=== PATIENT | female | born 1985 | race American Indian/Alaskan Native ===

== ENCOUNTER 2016-05-23 11:12 | Emergency (ER) | payer SELFPAY ==
[2016-05-23 12:39] VITALS: BP 123/78
[2016-05-23] MEDS ORDERED: Ketorolac INJ* 60 MG/2 ML VIAL IM ONE (13:17)
--- NOTE | 2016-05-23 13:29 | UC ---
Ear Complaint HPI - HPI Summary HPI Summary: THREE WEEKS OF LEFT EAR PAIN , SINUS PRESSURE COUGHING GREEN MUCUS, HAS BEEN/ BROKEN TEETH, HAS HAD PAIN IN TEETH. NO FEVER. - History of Current Complaint Chief Complaint: UCEar Stated Complaint: EAR COMPLAINT Time Seen by Provider: 05/23/16 12:43 Hx Obtained From: Patient Hx Last Menstrual Period: depot shot yesterday Onset/Duration: Gradual Onset, Lasting Weeks, Still Present Severity Initially: Mild Severity Currently: Moderate Associated Signs/Symptoms: Positive: URI Symptoms. Negative: Hearing Loss, Foreign Body Sensation, Trauma to Ear, Swelling @ - Allergies/Home Medications Allergies/Adverse Reactions: Allergies Allergy/AdvReac Type Severity Reaction Status Date / Time No Known Allergies Allergy Verified 06/09/13 10:57 PMH/Surg Hx/FS Hx/Imm Hx Previously Healthy: Yes Endocrine History Of: Denies: Diabetes, Thyroid Disease Cardiovascular History Of: Denies: Cardiac Disorders, Hypertension Respiratory History Of: Reports: Asthma Denies: COPD GI/ History Of: Denies: Ulcer, Renal Disease Psychological History Of: Reports: Anxiety, Depression - Surgical History Surgical History: Yes Surgery Procedure, Year, and Place: RIGHT SHOULDER JOINT DEBREIDMENT 03/2013. 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, alcohol since 2.5 years Smoking Status (MU): Heavy Every Day Tobacco Smoker Type: Cigarettes Amount Used/How Often: 1/2 PPD Length of Time of Smoking/Using Tobacco: 12 YEARS Have You Smoked in the Last Year: Yes Household Exposure Type: Cigarettes Cessation Counseling: Patient Advised to Stop - Immunization History Most Recent Influenza Vaccination: UNSURE Most Recent Tetanus Shot: UNSURE Most Recent Pneumonia Vaccination: NEVER Review of Systems Constitutional: Negative Skin: Negative Eyes: Negative ENT: Dental Pain, Sore Throat, Ear Ache Respiratory: Cough Cardiovascular: Negative Gastrointestinal: Negative Genitourinary: Negative Motor: Negative Neurovascular: Negative Musculoskeletal: Negative Neurological: Negative Psychological: Negative All Other Systems Reviewed And Are Negative: Yes Physical Exam Triage Information Reviewed: Yes Appearance: Well-Appearing, No Pain Distress, Well-Nourished Vital Signs: Initial Vital Signs Temp 97.7 F 05/23/16 12:31 Pulse 93 01/27/17 12:31 Resp 18 05/23/16 12:31 BP 123/78 05/23/16 12:31 Pulse Ox 100 05/23/16 12:31 Vital Signs Reviewed: Yes Eye Exam: Normal Eyes: Positive: Conjunctiva Clear ENT: Positive: Pharynx normal, TM bulging, TM dull, TM red, Other: - LEFT EDEMA EAC Dental: Positive: Gross Decay/Caries @ Neck: Positive: Supple, Nontender, Enlarged Nodes @ - BILAT ANTERIOR CERVICAL LN. Negative: Nuchal Rigidity Respiratory Exam: Normal Respiratory: Positive: Chest non-tender, Lungs clear, Normal breath sounds, No respiratory distress, No accessory muscle use Cardiovascular Exam: Normal Cardiovascular: Positive: RRR, No Murmur, Pulses Normal, Brisk Capillary Refill Abdominal Exam: Normal Abdomen Description: Positive: Nontender, No Organomegaly Musculoskeletal Exam: Normal Musculoskeletal: Positive: Strength Intact Neurological Exam: Normal Psychological Exam: Normal Skin Exam: Normal Ear Complaint Course/Dx - Differential Dx/Diagnosis Differential Diagnosis/HQI/PQRI: Cellulitis, Otitis Externa, Otitis Media, URI Provider Diagnoses: OTITIS MEDIA BILAT. OTITIS EXTERNA LEFT. SINUSITIS Discharge - Discharge Plan Condition: Stable Disposition: HOME Prescriptions: Amoxicillin/Clavulanate TAB* [Augmentin TAB 875*] 875 mg PO BID #20 tab Benzonatate CAP* [Tessalon CAP*] 100 mg PO TID PRN #15 cap PRN Reason: Cough Naproxen [Naproxen 500 MG TABS] 500 mg PO BID #10 tab Neomyc/Polym/HC 1% OTIC SUSP* [Cortisporin Otic Susp 1%*] 4 drop LEFT EAR TID # 1 btl Patient Education Materials: Sinusitis (ED), Otitis Externa (ED), Otitis Media (ED) Referrals: Judson Torres MD [Primary Care Provider] -
== END 2016-05-23 13:57 | disposition home or self-care (01) ==
LOC: UCEAST 11:12
DX: H66.93 Otitis media, unspecified, bilateral (principal); H60.92 Unspecified otitis externa, left ear; J32.9 Chronic sinusitis, unspecified; K03.81 Cracked tooth; F17.210 Nicotine dependence, cigarettes, uncomplicated
CPT/HCPCS: 96372; 99212; G0463; J1885

== ENCOUNTER 2018-05-02 13:38 | Emergency (ER) | payer MEDICAID, OTHER ==
[2018-05-02 14:20] VITALS: BP 125/83
--- NOTE | 2018-05-02 16:09 | UC ---
Dental HPI - HPI Summary HPI Summary: PATIENT HAS HAD A CRACKED LEFT LOWER TOOTH FOR OVER A YEAR. FOR THE PAST ONE MONTH SHE HAS DEVELOPED INCREASING PAIN AND INTERMITTENT SWELLING AROUND THE TOOTH. NO FEVER OR NAUSEA. HAS NOT SEEN A DENTIST SHE DOES NOT HAVE INSURANCE. FOR THE PAST FEW WEEKS SHE HAS ALSO HAD A PRODUCTIVE COUGH, SORE THROAT AND EAR PAIN. FEELS FATIGUED. IS A SMOKER. - History of Current Complaint Chief Complaint: UCDentalProblem Stated Complaint: COUGH,BACK PAIN,TOOTHACHE Time Seen by Provider: 05/02/18 15:19 Hx Obtained From: Patient Hx Last Menstrual Period: unknown Onset/Duration: Gradual Onset, Lasting Weeks, Resolved Pain Intensity: 3 Pain Scale Used: 0-10 Numeric Aggravating Factor(s): Heat, Cold, Chewing Alleviating Factor(s): Nothing - Allergies/Home Medications Allergies/Adverse Reactions: Allergies Allergy/AdvReac Type Severity Reaction Status Date / Time No Known Allergies Allergy Verified 05/02/18 14:21 Home Medications: Home Medications Prazosin CAP* [Minipress CAP*] 5 mg PO DAILY 05/02/18 [History Confirmed ] PMH/Surg Hx/FS Hx/Imm Hx Respiratory History: Asthma - Surgical History Surgical History: Yes Surgery Procedure, Year, and Place: RIGHT SHOULDER JOINT DEBREIDMENT 03/2013. 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, alcohol since 2.5 years Smoking Status (MU): Heavy Every Day Tobacco Smoker Type: Cigarettes Amount Used/How Often: 1/2 PPD Length of Time of Smoking/Using Tobacco: 12 YEARS Have You Smoked in the Last Year: Yes Household Exposure Type: Cigarettes - Immunization History Most Recent Influenza Vaccination: UNSURE Most Recent Tetanus Shot: UNSURE Most Recent Pneumonia Vaccination: NEVER Review of Systems All Other Systems Reviewed And Are Negative: Yes Constitutional: Positive: Fatigue ENT: Positive: Dental Pain, Sore Throat, Ear Ache, Nasal Discharge Respiratory: Positive: Other Cardiovascular: Positive: Negative Gastrointestinal: Positive: Negative Physical Exam Triage Information Reviewed: Yes Appearance: Well-Appearing, No Pain Distress, Well-Nourished Vital Signs: Initial Vital Signs Temp 98.7 F 05/02/18 14:16 Pulse 80 05/02/18 14:16 Resp 18 05/02/18 14:16 BP 125/83 05/02/18 14:16 Pulse Ox 100 05/02/18 14:16 Vital Signs Reviewed: Yes Eyes: Positive: Conjunctiva Clear ENT: Positive: Hearing grossly normal, Pharynx normal, TMs normal Dental: Positive: Gross Decay/Caries @, Dental Fracture @ - #17 - FRACTURED, DECAY WITH PLAQUE Neck: Positive: Supple, Nontender, No Lymphadenopathy Respiratory: Positive: No respiratory distress, No accessory muscle use, Decreased breath sounds, Wheezing - DIFFUSELY Cardiovascular Exam: Normal Abdomen Description: Positive: Soft Musculoskeletal: Positive: No Edema Neurological: Positive: Alert Psychological: Positive: Age Appropriate Behavior Skin: Negative: Rashes Dental Complaint Course/Dx - Course Course Of Treatment: PT DECLINES CXR TODAY. WILL COVER FOR DENTAL INFECTION WITH AUGMENTIN WHICH SHOULD COVER FOR ANY BACTERIAL COMPONENT OF HER RESPIRATORY INFECTION. WILL ALSO GIVE INHALER, PREDNISONE AND COUGH MEDS. ENCOURAGED PT TO QUIT SMOKING. - Differential Dx/Diagnosis Provider Diagnosis: Toothache, Acute bronchitis Discharge - Sign-Out/Discharge Documenting (check all that apply): Patient Departure All imaging exams completed and their final reports reviewed: No Studies - Discharge Plan Condition: Stable Disposition: HOME Prescriptions: Albuterol HFA INHALER* [Ventolin HFA Inhaler*] 2 puff INH Q4H PRN #1 mdi PRN Reason: Shortness Of Breath Amoxicillin/Clavulanate TAB* [Augmentin TAB 875*] 875 mg PO BID #20 tab Benzonatate CAP* [Tessalon CAP*] 1 - 2 cap PO TID PRN #30 cap PRN Reason: Cough Chlorhexidine MW 0.12% 473ML* [Peridex Mouth Wash 0.12%*] 15 ml SWISH SPIT BID # 1 bottle predniSONE TAB* [Deltasone 20 MG TAB*] 40 mg PO DAILY #10 tab Patient Education Materials: Acute Bronchitis (ED), Toothache (ED) Referrals: Judson Torres MD [Primary Care Provider] - If Needed Additional Instructions: TAKE THE ANTIBIOTICS FOR THE FULL COURSE. RINSE YOUR MOUTH WITH WATER AFTER EATING OR DRINKING ANYTHING. ANTISEPTIC MOUTH RINSE TWICE DAILY. naproxen NEEDED FOR DISCOMFORT. FOLLOW-UP WITH A DENTIST YOLA. IBUPROFEN MAX DOSE: 600MG (3 TABS) EVERY 6 HRS OR 800MG (4 TABS) EVERY 8 HRS OR NAPROXEN MAX DOSE: 440MG (2 TABS) EVERY 12 HRS TYLENOL MAX DOSE: 1000MG (2 EXTRA STRENGTH TABS) EVERY 8 HRS OR 650MG (2 REGULAR TABS) EVERY 6 HRS DENTISTS IN [place]. LIST OF L[facility]ST DENTISTS ALSO PROVIDED Prateek Mejía Livermore & Juan. DDS Dentist Office [address], [place] [address] Gabriel Blas, DDS [address], [place] [address] Garry Dickey D.D.S. [address], [place] [phone] Opens at 8am YOUR RESPIRATORY SYMPTOMS MAY BE VIRALLY MEDIATED BUT GIVEN THE LENGTH OF TIME YOU HAVE BEEN ILL WE WILL COVER YOU WITH ANTIBIOTICS. IF YOU START THE MEDICINE BE SURE TO TAKE IT FOR THE FULL COURSE. REST, HYDRATE, OTC MEDS NEEDED. WILL ALSO TREAT WITH PREDNISONE ANDD ALBUTEROL TO HELP WITH AIRWAY INFLAMMATION AND COUGH MEDICINE. SEEK FOLLOW-UP WITH YOUR PCP IF YOU ARE NOT IMPROVING OVER THE NEXT 1-2 WEEKS. - Billing Disposition and Condition Condition: STABLE Disposition: Home
== END 2018-05-02 15:40 | disposition home or self-care (01) ==
LOC: UCEAST 13:38
DX: J20.9 Acute bronchitis, unspecified (principal); K08.89 Other specified disorders of teeth and supporting structures; J45.909 Unspecified asthma, uncomplicated; F17.210 Nicotine dependence, cigarettes, uncomplicated
CPT/HCPCS: 99212; G0463

== ENCOUNTER 2018-08-16 19:44 | Emergency (ER) | payer SELFPAY ==
--- NOTE | 2018-08-16 19:53 | UC ---
Abdominal Pain Female HPI - HPI Summary HPI Summary: 32 yo female presents with epigastric pain. She describes the pain as a burning that is worse with lying down. She has vomited once due to this pain. No change with meals. She mentions that about a week ago she had IV conscious sedation for some oral surgery and ever since that time she has had this stomach discomfort. She is eating and drinking well, but does endorse some nausea. She denies fever, chills, SOB, chest pain, diarrhea, or dysuria. - History of Current Complaint Stated Complaint: ABDOMINAL PAIN, AND BACK PAIN Time Seen by Provider: 08/16/18 19:53 Hx Obtained From: Patient Hx Last Menstrual Period: unknown Onset/Duration: Sudden Onset Severity Initially: Moderate Severity Currently: Moderate Pain Intensity: 8 Pain Scale Used: 0-10 Numeric Allergies/Adverse Reactions: Allergies Allergy/AdvReac Type Severity Reaction Status Date / Time No Known Allergies Allergy Verified 08/16/18 20:00 Home Medications: Home Medications Acetaminophen TAB* [Tylenol TAB*] 975 mg PO Q4H PRN 08/16/18 [History Confirmed 08/16/18] Ibuprofen TAB* [Motrin TAB* 800 MG] 800 mg PO Q6H 08/16/18 [History Confirmed ] PMH/Surg Hx/FS Hx/Imm Hx - Additional Past Medical History Additional PMH: None - Surgical History Surgical History: Yes Surgery Procedure, Year, and Place: RIGHT SHOULDER JOINT DEBREIDMENT 03/2013. 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, alcohol since 2.5 years Smoking Status (MU): Heavy Every Day Tobacco Smoker Type: Cigarettes Amount Used/How Often: 1/2 PPD Length of Time of Smoking/Using Tobacco: 12 YEARS Have You Smoked in the Last Year: Yes Household Exposure Type: Cigarettes - Immunization History Most Recent Influenza Vaccination: UNSURE Most Recent Tetanus Shot: UNSURE Most Recent Pneumonia Vaccination: NEVER Review of Systems All Other Systems Reviewed And Are Negative: Yes Constitutional: Positive: Negative Skin: Positive: Negative Respiratory: Positive: Negative Cardiovascular: Positive: Negative Gastrointestinal: Positive: Abdominal Pain, Vomiting, Nausea Genitourinary: Positive: Negative Neurovascular: Positive: Negative Neurological: Positive: Negative Psychological: Positive: Negative Physical Exam - Summary Physical Exam Summary: GENERAL: NAD. WDWN. No pain distress. SKIN: No rashes, sores, lesions, or open wounds. NECK: Supple. Nontender. No lymphadenopathy. CHEST: CTAB. No r/r/w. No accessory muscle use. Breathing comfortably and in no distress. CV: RRR. Without m/r/g. Pulses intact. Cap refill <2seconds ABDOMEN: Mild TTP at epigastrum. Soft. No distention or guarding. No organomegaly. No CVA tenderness. Bowel sounds present NEURO: Alert. PSYCH: Age appropriate behavior. Triage Information Reviewed: Yes Vital Signs: Vital Signs: Temp Pulse Resp BP Pulse Ox 99.1 F 84 16 121/71 97 08/16/18 19:52 08/16/18 19:52 08/16/18 19:52 08/16/18 19:52 08/16/18 19:52 Vital Signs Reviewed: Yes Abd Pain Female Course/Dx - Course Course Of Treatment: Suspect GERD vs gastroparesis given her recent IV sedation and symptoms beginning right after this. In the clinic she was given zofran, maalox, pepcid, and lidocaine viscous. She report significant improvement of her symptoms and felt much better. Will dc her with an rx for omeprazole and zofran. Advised to f /u if her symptoms worsen or do not improve with these medications. - Differential Dx/Diagnosis Provider Diagnosis: GERD (gastroesophageal reflux disease) Discharge - Sign-Out/Discharge Documenting (check all that apply): Patient Departure All imaging exams completed and their final reports reviewed: No Studies - Discharge Plan Condition: Stable Disposition: HOME Prescriptions: Omeprazole 40 mg PO DAILY #30 cap Ondansetron ODT TAB* [Zofran 4 MG Odt TAB*] 4 mg PO Q8H PRN #12 tab.odt PRN Reason: Nausea Patient Education Materials: Gastritis (DC), Gastroesophageal Reflux Disease ( DC) Referrals: Judson Torres MD [Primary Care Provider] - Additional Instructions: If you develop a fever, shortness of breath, chest pain, new or worsening symptoms - please call your PCP or go to the ED. - Billing Disposition and Condition Condition: STABLE Disposition: Home
[2018-08-16 20:00] VITALS: BP 121/71
[2018-08-16] MEDS ORDERED: Ondansetron ODT TAB* 4 MG SL ONE (20:13)
[2018-08-16] MEDS ORDERED: Al Hydrox/Mg Hydrox/Simet LIQ* 30 ML UDC PO ONE (20:13)
[2018-08-16] MEDS ORDERED: Famotidine TAB* 20 MG PO ONE (20:13)
[2018-08-16] MEDS ORDERED: Lidocaine 2% VISCOUS* 15 ML UDC PO ONE (20:13)
== END 2018-08-16 20:50 | disposition home or self-care (01) ==
LOC: UCEAST 19:44
DX: K21.9 Gastro-esophageal reflux disease without esophagitis (principal); F17.210 Nicotine dependence, cigarettes, uncomplicated
CPT/HCPCS: 99213; A9270-GY; G0463

== ENCOUNTER 2021-07-01 08:35 | Inpatient (IN) ==
[2021-07-01] MEDS ORDERED: Haloperidol 5 mg/ml SDV IV/IM 5 MG/ML AMP IM ONE ×2 (10:18→10:21)
[2021-07-01] MEDS ORDERED: Diazepam INJ CARPUJECT 5 MG/ML IM ONE ×2 (10:19→10:21)
[2021-07-01 14:44] LABS: ABS Basophils 0.1 10^3/ul (0-0.2); ABS Eosinophils 0.1 10^3/ul (0-0.6); ABS Lymphocytes 1.9 10^3/ul (1.0-4.8); ABS Monocytes 0.5 10^3/ul (0-0.8); ABS Neutrophils 6.4 10^3/ul (1.5-7.7); Hematocrit 43 % (35-47); Hemoglobin 15.1 g/dL (12.0-16.0); Lymphocyte % 21.5 %; Mean Corpuscular HGB Conc 35 g/dL (31-36); Mean Corpuscular Hemoglobin 33 pg (27-31); Mean Corpuscular Volume 95 fL (80-97); Mean Platelet Volume 7.3 fL (7.4-10.4); Platelet Count 271 10^3/uL (150-450); Red Blood Count 4.57 10^6 /uL (3.70-4.87); Red Cell Distribution Width 13 % (10-15)
[2021-07-01 15:19] LABS: TSH Ultra Thyroid Stim Horm 2.59 mcIU/mL (0.34-5.60)
[2021-07-01 15:30] LABS: ALT 25 U/L (7-52); AST 27 U/L (13-39); Acetaminophen < 15 mcg/mL; Albumin 4.6 g/dL (3.2-5.2); Albumin/Globulin Ratio 1.9 (1-3); Alcohol, S < 13 mg/dL (<13); Alkaline Phosphatase 55 U/L (35-149); Anion Gap 8 mmol/L (2-11); Blood Urea Nitrogen 16 mg/dL (6-24); CO2 Carbon Dioxide 23 mmol/L (22-32); Calcium 9.1 mg/dL (8.6-10.3); Chloride 107 mmol/L (101-111); Globulin 2.4 g/dL (2-4); Glucose 81 mg/dL (70-100); Potassium 4.1 mmol/L (3.5-5.0); Salicylate < 2.50 mg/dL (<30); Sodium 138 mmol/L (135-145)
[2021-07-02] MEDS ORDERED: Al Hydrox/Mg Hydrox/Simet LIQ 30 ML UDC PO PRN (00:45)
[2021-07-02 02:55] LABS: Urine Appearance Turbid; Urine Bilirubin Negative (Negative); Urine Blood 2+ (Negative); Urine Color Amber; Urine Glucose Negative (Negative); Urine Ketones 1+ (Negative); Urine Nitrite Negative (Negative); Urine Protein Negative (Negative); Urine Specific Gravity 1.024 (1.002-1.030); Urine Urobilinogen Negative (Negative)
[2021-07-02 03:02] LABS: Urine Bacteria 1+ (Absent); Urine Red Blood Cell 3+(>10/hpf) (Absent); Urine Squamous Epithelial Cell Present (Absent); Urine White Blood Cell 3+(>20/hpf) (Absent)
[2021-07-02 03:05] LABS: Urine Benzodiazepine Screen Presumptive Positive (None Detect); Urine Cannabinoids Screen Presumptive Positive (None Detect); Urine Opiates Screen None Detected (None Detect)
[2021-07-02] MEDS: Nicotine PATCH 21 MG/24 HR PATCH TRANSDERM SCH (13:06)
[2021-07-02] MEDS: Buprenorp/Nalox 4-1 MG FILM SL FILM SCH ×2 (13:06→22:09)
[2021-07-02] MEDS: Vitamin THERAPEUTIC TAB PO SCH (13:07)
[2021-07-03] MEDS: Nicotine PATCH 21 MG/24 HR PATCH TRANSDERM SCH (07:44)
[2021-07-03] MEDS: Vitamin THERAPEUTIC TAB PO SCH (09:46)
[2021-07-03] MEDS: Buprenorp/Nalox 4-1 MG FILM SL FILM SCH ×2 (09:47→23:44)
[2021-07-04] MEDS: Nicotine PATCH 21 MG/24 HR PATCH TRANSDERM SCH (07:35)
[2021-07-04] MEDS: Vitamin THERAPEUTIC TAB PO SCH (07:36)
[2021-07-04] MEDS: Buprenorp/Nalox 4-1 MG FILM SL FILM SCH ×2 (10:35→19:51)
[2021-07-05] MEDS: Buprenorp/Nalox 4-1 MG FILM SL FILM SCH ×2 (10:23→20:00)
[2021-07-05] MEDS: Vitamin THERAPEUTIC TAB PO SCH (10:23)
[2021-07-05] MEDS: Nicotine PATCH 21 MG/24 HR PATCH TRANSDERM SCH (10:24)
[2021-07-05] MEDS: Nicotine GUM 2MG FRUIT FLAVOR PO PRN (14:03)
[2021-07-06] MEDS: Nicotine PATCH 21 MG/24 HR PATCH TRANSDERM SCH (08:59)
[2021-07-06] MEDS: Buprenorp/Nalox 4-1 MG FILM SL FILM SCH ×2 (08:59→20:31)
[2021-07-06] MEDS: Vitamin THERAPEUTIC TAB PO SCH (08:59)
[2021-07-06 10:36] LABS: HIV 4th Generation Nonreactive (Nonreactive)
[2021-07-06 10:54] LABS: Hepatitis C Antibody Reactive (Negative)
[2021-07-06] MEDS: Nicotine GUM 2MG FRUIT FLAVOR PO PRN (15:47)
[2021-07-07] MEDS: Vitamin THERAPEUTIC TAB PO SCH (08:05)
[2021-07-07] MEDS: Buprenorp/Nalox 4-1 MG FILM SL FILM SCH ×2 (09:22→21:20)
[2021-07-07] MEDS: Nicotine PATCH 21 MG/24 HR PATCH TRANSDERM SCH (10:45)
[2021-07-08] MEDS: Buprenorp/Nalox 4-1 MG FILM SL FILM SCH (10:12)
[2021-07-08] MEDS: Nicotine PATCH 21 MG/24 HR PATCH TRANSDERM SCH (10:12)
[2021-07-08] MEDS: Vitamin THERAPEUTIC TAB PO SCH (12:06)
[2021-07-08] MEDS: Nicotine GUM 2MG FRUIT FLAVOR PO PRN (15:15)
[2021-07-09 08:18] LABS: HDL Cholesterol 51.2 mg/dL
[2021-07-09] MEDS: Vitamin THERAPEUTIC TAB PO SCH (08:40)
[2021-07-09] MEDS: Nicotine PATCH 21 MG/24 HR PATCH TRANSDERM SCH (08:40)
[2021-07-09] MEDS: Nicotine GUM 2MG FRUIT FLAVOR PO PRN ×2 (11:22→14:36)
[2021-07-10] MEDS: Vitamin THERAPEUTIC TAB PO SCH (09:20)
[2021-07-10] MEDS: Nicotine GUM 2MG FRUIT FLAVOR PO PRN ×3 (09:20→14:52)
[2021-07-10] MEDS: Buprenorp/Nalox 4-1 MG FILM SL FILM SCH ×3 (09:21→20:45)
[2021-07-10] MEDS: Nicotine PATCH 21 MG/24 HR PATCH TRANSDERM SCH (09:21)
[2021-07-11 08:28] VITALS: BP 118/70
[2021-07-11] MEDS: Nicotine GUM 2MG FRUIT FLAVOR PO PRN (08:53)
[2021-07-11] MEDS: Vitamin THERAPEUTIC TAB PO SCH (08:53)
[2021-07-11] MEDS: Buprenorp/Nalox 4-1 MG FILM SL FILM SCH (08:53)
[2021-07-11] MEDS: Nicotine PATCH 21 MG/24 HR PATCH TRANSDERM SCH (11:21)
== END 2021-07-11 13:45 | disposition home or self-care (01) | DRG 753 ==
LOC: ED 08:35 → BSU 22:57
PROVIDERS: ADMIT Psychiatry & Neurology Psychiatry; ATTEND Psychiatry & Neurology Psychiatry

== ENCOUNTER 2022-04-08 22:19 | Inpatient (IN) ==
[2022-04-08 23:22] LABS: Urine Benzodiazepine Screen None Detected (None Detect); Urine Cannabinoids Screen Presumptive Positive (None Detect); Urine Opiates Screen None Detected (None Detect)
[2022-04-09 01:06] LABS: ABS Basophils 0.1 10^3/ul (0-0.2); ABS Eosinophils 0.2 10^3/ul (0-0.6); ABS Lymphocytes 2.3 10^3/ul (1.0-4.8); ABS Monocytes 0.4 10^3/ul (0-0.8); ABS Neutrophils 4.2 10^3/ul (1.5-7.7); Eosinophil % 2.1 %; Hematocrit 45 % (35-47); Hemoglobin 15.1 g/dL (12.0-16.0); Lymphocyte % 32.9 %; Mean Corpuscular HGB Conc 34 g/dL (31-36); Mean Corpuscular Hemoglobin 33 pg (27-31); Mean Corpuscular Volume 96 fL (80-97); Mean Platelet Volume 7.2 fL (7.4-10.4); Nucleated Red Blood Cells % 0.2; Platelet Count 240 10^3/uL (150-450); Red Blood Count 4.63 10^6 /uL (3.70-4.87); Red Cell Distribution Width 13 % (10-15); White Blood Count 7.1 10^3/uL (3.5-10.8)
[2022-04-09 01:42] LABS: ALT 15 U/L (7-52); AST 16 U/L (13-39); Acetaminophen < 15 mcg/mL; Albumin 4.5 g/dL (3.2-5.2); Albumin/Globulin Ratio 1.8 (1-3); Alcohol, S < 13 mg/dL (<13); Alkaline Phosphatase 44 U/L (35-149); Anion Gap 4 mmol/L (2-11); Blood Urea Nitrogen 13 mg/dL (6-24); CO2 Carbon Dioxide 28 mmol/L (22-32); Calcium 9.4 mg/dL (8.6-10.3); Chloride 103 mmol/L (101-111); Globulin 2.5 g/dL (2-4); Glucose 81 mg/dL (70-100); Potassium 4.1 mmol/L (3.5-5.0); Salicylate < 2.50 mg/dL (<30); Sodium 135 mmol/L (135-145); eGFR CKD-EPI 94.4 (>60)
[2022-04-09 01:48] LABS: HCG Pregnancy < 0.60 mIU/mL
[2022-04-09 01:57] LABS: TSH Ultra Thyroid Stim Horm 2.35 mcIU/mL (0.34-5.60)
[2022-04-09] MEDS ORDERED: Al Hydrox/Mg Hydrox/Simet LIQ 30 ML UDC PO PRN (08:46)
[2022-04-09] MEDS: Buprenorp/Nalox 4-1 MG FILM SL FILM SCH ×2 (11:40→21:22)
[2022-04-09 13:11] LABS: Urine Benzodiazepine Screen None Detected (None Detect); Urine Buprenorphine Screen Presumptive Positive (None Detect); Urine Cannabinoids Screen Presumptive Positive (None Detect); Urine Fentanyl Screen None Detected (None Detect); Urine Hydrocodone Screen None Detected (None Detect); Urine Opiates Screen None Detected (None Detect)
[2022-04-10] MEDS: Nicotine PATCH 14 MG/24 HR PATCH TRANSDERM SCH (09:56)
[2022-04-10] MEDS: Buprenorp/Nalox 4-1 MG FILM SL FILM SCH ×2 (09:57→20:53)
[2022-04-10] MEDS: Nicotine GUM 2MG FRUIT FLAVOR PO PRN ×2 (10:01→16:14)
[2022-04-10] MEDS: Multivitamins/Minerals TAB PO SCH (12:55)
[2022-04-11] MEDS: Buprenorp/Nalox 4-1 MG FILM SL FILM SCH ×2 (13:02→20:20)
[2022-04-11] MEDS: Multivitamins/Minerals TAB PO SCH (13:51)
[2022-04-11] MEDS: Nicotine PATCH 14 MG/24 HR PATCH TRANSDERM SCH (13:51)
[2022-04-11] MEDS: Nicotine GUM 2MG FRUIT FLAVOR PO PRN ×3 (13:53→20:20)
[2022-04-12] MEDS: Nicotine GUM 2MG FRUIT FLAVOR PO PRN ×2 (07:07→20:34)
[2022-04-12] MEDS: Buprenorp/Nalox 4-1 MG FILM SL FILM SCH ×2 (09:53→20:32)
[2022-04-12] MEDS: Nicotine PATCH 14 MG/24 HR PATCH TRANSDERM SCH (09:55)
[2022-04-12] MEDS: Multivitamins/Minerals TAB PO SCH (09:55)
[2022-04-13] MEDS: Multivitamins/Minerals TAB PO SCH (08:43)
[2022-04-13] MEDS: Buprenorp/Nalox 4-1 MG FILM SL FILM SCH ×2 (08:43→19:53)
[2022-04-13] MEDS: Nicotine PATCH 14 MG/24 HR PATCH TRANSDERM SCH (08:43)
[2022-04-13] MEDS: Nicotine GUM 2MG FRUIT FLAVOR PO PRN ×2 (08:46→14:09)
[2022-04-14] MEDS: Buprenorp/Nalox 4-1 MG FILM SL FILM SCH ×2 (10:05→20:54)
[2022-04-14] MEDS: Nicotine GUM 2MG FRUIT FLAVOR PO PRN ×2 (10:06→20:48)
[2022-04-14] MEDS: Multivitamins/Minerals TAB PO SCH (10:06)
[2022-04-14] MEDS: Nicotine PATCH 14 MG/24 HR PATCH TRANSDERM SCH (10:06)
[2022-04-15] MEDS: Buprenorp/Nalox 4-1 MG FILM SL FILM SCH (09:07)
[2022-04-15] MEDS: Nicotine PATCH 14 MG/24 HR PATCH TRANSDERM SCH (09:08)
[2022-04-15] MEDS: Multivitamins/Minerals TAB PO SCH (09:08)
[2022-04-15] MEDS: Nicotine GUM 2MG FRUIT FLAVOR PO PRN (09:10)
[2022-04-15 09:39] VITALS: BP 105/68
== END 2022-04-15 11:54 | disposition home or self-care (01) | DRG 773 ==
LOC: ED 22:19 → EDHOLD 04-09 08:46 → BSU 04-09 11:05
PROVIDERS: ADMIT Psychiatry & Neurology Psychiatry; ATTEND Psychiatry & Neurology Psychiatry

== ENCOUNTER 2023-01-21 18:38 | Inpatient (IN) ==
[2023-01-22 00:35] LABS: Hematocrit 33.1 % (35-45); Hemoglobin 11.7 g/dL (11.5-14.3); Mean Corpuscular Hemoglobin 33.5 pg (27-33); Mean Corpuscular Hgb Conc 35.5 g/dL (31-36); Mean Corpuscular Volume 94.4 fL (80-97); Mean Platelet Volume 7.3 fL (7.5-11.2); Platelet Count 434 10^3/uL (150-450); Red Cell Distribution Width 12.9 % (12-17); White Blood Count 15.9 10^3/uL (3.8-11.8)
[2023-01-22] MEDS ORDERED: Clindamycin 600 MG/D5W BAG 600 MG/50 ML BAG IV ONE (00:38)
[2023-01-22 00:54] LABS: Albumin 3.3 g/dL (3.2-5.2); C Reactive Protein 133.17 mg/L (<8.01); Creatinine, Serum 0.48 mg/dL (0.51-0.95); Globulin 3.3 g/dL (2-4); Total Bilirubin 0.3 mg/dL (0.2-1.0); Total Protein 6.6 g/dL (6.4-8.9); eGFR CKD-EPI 124.3 (>60)
[2023-01-22] MEDS ORDERED: Iohexol 300 (CONTRAST) 10 ML SDV IV ONE (00:59)
[2023-01-22 01:00] LABS: HCG Pregnancy 0.64 mIU/mL
[2023-01-22 01:20] LABS: Platelet Morphology Large
[2023-01-22 01:23] LABS: ABS Basophils 0.1 10^3/uL (0.0-0.1); ABS Eosinophils 0.2 10^3/uL (0.0-0.5); ABS Lymphocytes 2.3 10^3/uL (1.0-4.8); ABS Neutrophils 12.3 10^3/uL (1.5-7.6); Eosinophil % 1.4 %; Lymphocyte % 14.4 %
[2023-01-22] MEDS ORDERED: Clindamycin 600 MG/NS BAG(*) 600 MG/50 ML BAG IV ONE (02:00)
[2023-01-22] MEDS ORDERED: Vancomycin 1,250 MG in NS 0.9% 250 ml 250 ML IVPB ONE (02:09)
[2023-01-22] MEDS ORDERED: Lactated Ringers 1000 ml BAG 1,000 ML IV ONE (02:09)
[2023-01-22] MEDS ORDERED: Piperacillin/Tazobac 3.375 BAG 3.375 GM/100 ML BAG IV ONE (02:09)
[2023-01-22] MEDS ORDERED: Polyethylene Glycol 3350 17 GM PACKET PO PRN (02:12)
[2023-01-22] MEDS ORDERED: Ondansetron 4 mg VIAL 2 MG/ML 2 ml VIAL IV PRN (02:12)
[2023-01-22] MEDS ORDERED: Senna TAB 8.6 mg TAB PO PRN (02:12)
[2023-01-22] MEDS ORDERED: Vancomycin per Pharmacy 1 EA NOTE FOLLOW UP SCH (03:00)
[2023-01-22] MEDS ORDERED: Lactated Ringers 1000 ml BAG 1,000 ML IV SCH (03:00)
[2023-01-22] MEDS ORDERED: Zosyn per Pharmacy NOTE FOLLOW UP SCH (03:00)
[2023-01-22] MEDS ORDERED: Potassium Chloride IV 40 MEQ in Lactated Ringers 1000 ml BAG 1,000 ML IVPB SCH (03:40)
[2023-01-22] MEDS ORDERED: Potassium Chlor 20 meq TAB.ER PO ONE (03:40)
[2023-01-22 06:44] LABS: Hematocrit 29.5 % (35-45); Hemoglobin 10.3 g/dL (11.5-14.3); Mean Corpuscular Hemoglobin 33.2 pg (27-33); Mean Corpuscular Volume 94.9 fL (80-97); Mean Platelet Volume 6.9 fL (7.5-11.2); Platelet Count 403 10^3/uL (150-450); Red Cell Distribution Width 12.8 % (12-17); White Blood Count 11.1 10^3/uL (3.8-11.8)
[2023-01-22 06:46] LABS: ABS Eosinophils 0.3 10^3/uL (0.0-0.5); ABS Monocytes 0.9 10^3/uL (0.0-0.9); Eosinophil % 2.3 %; Lymphocyte % 17.7 %
[2023-01-22 06:59] LABS: Calcium 8.2 mg/dL (8.6-10.3); Creatinine, Serum 0.51 mg/dL (0.51-0.95); Potassium 3.2 mmol/L (3.5-5.0); eGFR CKD-EPI 122.5 (>60)
[2023-01-22] MEDS ORDERED: ZOSYN 3.375 GM Q8H per EXTENDED INFUSION IV SCH (08:00)
[2023-01-22 08:49] LABS: Urine Benzodiazepine Screen None Detected (None Detect); Urine Cannabinoids Screen Presumptive Positive (None Detect); Urine Opiates Screen None Detected (None Detect)
[2023-01-22] MEDS ORDERED: Tetan/Diph/Pertus SYR(Tdap) 0.5 ML SYR(BOOSTRIX) use SYR contains LATEX IM ONE (10:58)
[2023-01-22] MEDS: Buprenorp/Nalox 4-1 MG FILM SL SCH ×2 (11:30→22:43)
[2023-01-22] MEDS ORDERED: Vancomycin 1,250 MG in NS 0.9% 250 ml 250 ML IVPB SCH (13:00)
[2023-01-22] MEDS ORDERED: Lorazepam PYXIS KEY PRN (17:27)
[2023-01-22] MEDS ORDERED: LORazepam 2 mg VIAL 1 ml IV PUSH ONE (17:27)
[2023-01-22] MEDS: Nicotine PATCH 21 MG/24 HR PATCH TRANSDERM SCH (21:01)
[2023-01-22] MEDS: ZOSYN 3.375 GM Q8H per EXTENDED INFUSION IV SCH (21:01)
[2023-01-23] MEDS: Vancomycin 1,250 MG in NS 0.9% 250 ml 250 ML IVPB SCH ×3 (01:27→18:35)
[2023-01-23] MEDS: ZOSYN 3.375 GM Q8H per EXTENDED INFUSION IV SCH ×3 (05:23→20:53)
[2023-01-23 09:50] LABS: Hematocrit 35.4 % (35-45); Hemoglobin 12.1 g/dL (11.5-14.3); Mean Corpuscular Hgb Conc 34.1 g/dL (31-36); Mean Platelet Volume 7.2 fL (7.5-11.2); Platelet Count 510 10^3/uL (150-450); Red Blood Count 3.65 10^6/uL (3.63-4.92); Red Cell Distribution Width 13.5 % (12-17)
[2023-01-23] MEDS: Nicotine PATCH 21 MG/24 HR PATCH TRANSDERM SCH (10:10)
[2023-01-23] MEDS: Buprenorp/Nalox 4-1 MG FILM SL SCH ×2 (10:11→20:24)
[2023-01-23 10:13] LABS: Blood Urea Nitrogen 8 mg/dL (6-24); CO2 Carbon Dioxide 26 mmol/L (22-32); Calcium 8.9 mg/dL (8.6-10.3); Chloride 106 mmol/L (101-111); Creatinine, Serum 0.56 mg/dL (0.51-0.95); Glucose 68 mg/dL (70-100); Sodium 136 mmol/L (135-145); eGFR CKD-EPI 119.7 (>60)
[2023-01-23] MEDS: Nicotine GUM 4MG FRUIT FLAVOR PO PRN ×2 (10:13→16:41)
[2023-01-23] MEDS: Acetaminophen IV 1 GM/100ML 1,000 MG/100 ML BAG IV PRN ×2 (10:15→20:28)
[2023-01-23 10:27] LABS: Anion Gap 4 mmol/L (2-16); RBC Morphology Normal (Normal)
[2023-01-23 10:37] LABS: ABS Basophils 0.2 10^3/uL (0.0-0.1); ABS Eosinophils 0.2 10^3/uL (0.0-0.5); ABS Lymphocytes 2.2 10^3/uL (1.0-4.8); ABS Monocytes 0.5 10^3/uL (0.0-0.9); ABS Neutrophils 7.8 10^3/uL (1.5-7.6); ABS Nucleated RBC 0.01 10^3/ul; Eosinophil % 2.1 %; Lymphocyte % 19.8 %; Nucleated Red Blood Cells % 0.1 /100 WBC (0.0-0.4)
[2023-01-23 13:22] LABS: Potassium Redraw 4.2 mmol/L (3.5-5.0)
[2023-01-23] MEDS ORDERED: Vancomycin Trough Check NOTE FOLLOW UP ONE (16:30)
[2023-01-24] MEDS: Vancomycin 1,250 MG in NS 0.9% 250 ml 250 ML IVPB SCH ×5 (01:19→23:48)
[2023-01-24] MEDS: ZOSYN 3.375 GM Q8H per EXTENDED INFUSION IV SCH ×3 (03:02→19:34)
[2023-01-24] MEDS: Nicotine PATCH 21 MG/24 HR PATCH TRANSDERM SCH (10:26)
[2023-01-24] MEDS: Buprenorp/Nalox 4-1 MG FILM SL SCH ×2 (10:26→21:49)
[2023-01-24 12:55] LABS: ABS Eosinophils 0.2 10^3/uL (0.0-0.5); ABS Lymphocytes 1.4 10^3/uL (1.0-4.8); ABS Monocytes 0.4 10^3/uL (0.0-0.9); ABS Nucleated RBC 0.01 10^3/ul; Eosinophil % 1.6 %; Hematocrit 32.1 % (35-45); Hemoglobin 11.1 g/dL (11.5-14.3); Lymphocyte % 14.4 %; Mean Corpuscular Hemoglobin 33.4 pg (27-33); Mean Corpuscular Hgb Conc 34.6 g/dL (31-36); Mean Corpuscular Volume 96.4 fL (80-97); Mean Platelet Volume 7.5 fL (7.5-11.2); Nucleated Red Blood Cells % 0.1 /100 WBC (0.0-0.4); Platelet Count 514 10^3/uL (150-450); Red Blood Count 3.33 10^6/uL (3.63-4.92); White Blood Count 10.1 10^3/uL (3.8-11.8)
[2023-01-24 13:04] LABS: Vancomycin Trough 14.4 mcg/mL
[2023-01-24] MEDS ORDERED: Vancomycin 1,250 MG in NS 0.9% 250 ml 250 ML IVPB ONE (13:08)
[2023-01-24 13:23] LABS: Calcium 8.4 mg/dL (8.6-10.3); Potassium 4.7 mmol/L (3.5-5.0)
[2023-01-24 13:29] LABS: Creatinine, Serum 0.57 mg/dL (0.51-0.95); eGFR CKD-EPI 119.2 (>60)
[2023-01-24] MEDS ORDERED: Lidocaine 1% w EPI 1:200,000 SDV 30 ML VIAL ONE (14:15)
[2023-01-24] MEDS ORDERED: ceFAZolin VIAL VIAL ONE (14:16)
[2023-01-24] MEDS ORDERED: Bupivacaine 0.25% SDV 30 ML ONE (14:16)
[2023-01-25] MEDS: ZOSYN 3.375 GM Q8H per EXTENDED INFUSION IV SCH ×3 (03:44→19:53)
[2023-01-25 06:58] LABS: ABS Basophils 0.1 10^3/uL (0.0-0.1); ABS Eosinophils 0.2 10^3/uL (0.0-0.5); ABS Lymphocytes 1.7 10^3/uL (1.0-4.8); ABS Monocytes 0.4 10^3/uL (0.0-0.9); ABS Neutrophils 6.4 10^3/uL (1.5-7.6); ABS Nucleated RBC 0.01 10^3/ul; Eosinophil % 1.9 %; Hematocrit 33.6 % (35-45); Hemoglobin 11.8 g/dL (11.5-14.3); Lymphocyte % 19.5 %; Mean Corpuscular Hemoglobin 33.8 pg (27-33); Mean Corpuscular Hgb Conc 35.1 g/dL (31-36); Mean Corpuscular Volume 96.1 fL (80-97); Mean Platelet Volume 7.1 fL (7.5-11.2); Nucleated Red Blood Cells % 0.1 /100 WBC (0.0-0.4); Platelet Count 568 10^3/uL (150-450); Red Cell Distribution Width 12.6 % (12-17); White Blood Count 8.8 10^3/uL (3.8-11.8)
[2023-01-25 07:22] LABS: Calcium 8.3 mg/dL (8.6-10.3); Creatinine, Serum 0.63 mg/dL (0.51-0.95); Magnesium 2.2 mg/dL (1.9-2.7); Potassium 4.7 mmol/L (3.5-5.0); eGFR CKD-EPI 116.4 (>60)
[2023-01-25] MEDS ORDERED: Midazolam 2 mg/2 ml VIAL 1 mg/ml 2 ml VIAL (2 mg) ONE ×2 (08:17→08:50)
[2023-01-25] MEDS ORDERED: fentaNYL 100 mcg/2 ml 50 MCG/ML VIAL ONE (08:17)
[2023-01-25] MEDS ORDERED: Lidocaine 2% PF 5 ML VIAL ONE (08:48)
[2023-01-25] MEDS ORDERED: Propofol 10 MG/ML 20 ML BTL ONE (08:48)
[2023-01-25] MEDS ORDERED: Dexamethasone IV 4 MG/ML VIAL 1 ml VIAL ONE (09:03)
[2023-01-25] MEDS: Vancomycin 1,250 MG in NS 0.9% 250 ml 250 ML IVPB SCH ×3 (09:05→23:44)
[2023-01-25] MEDS ORDERED: Acetaminophen IV 1 GM/100ML 1,000 MG/100 ML BAG IV ONE (09:07)
[2023-01-25] MEDS ORDERED: Phenylephrine 40 mcg/mL 10mL (400mcg) SYRINGE ONE (09:09)
[2023-01-25] MEDS ORDERED: Metoclopramide 5 MG/ML VIAL (10 mg) IV PRN (10:02)
[2023-01-25] MEDS ORDERED: Naloxone 0.4 mg VIAL 0.4 mg/ml 1 ml VIAL IV PRN (10:02)
[2023-01-25] MEDS: Buprenorp/Nalox 4-1 MG FILM SL SCH ×2 (12:39→22:55)
[2023-01-25] MEDS: Nicotine PATCH 21 MG/24 HR PATCH TRANSDERM SCH (12:40)
[2023-01-25] MEDS: Nicotine GUM 4MG FRUIT FLAVOR PO PRN (12:46)
[2023-01-25] MEDS: Acetaminophen IV 1 GM/100ML 1,000 MG/100 ML BAG IV PRN (18:31)
[2023-01-26] MEDS: ZOSYN 3.375 GM Q8H per EXTENDED INFUSION IV SCH ×2 (03:46→12:03)
[2023-01-26] MEDS: Nicotine GUM 4MG FRUIT FLAVOR PO PRN ×3 (03:56→19:56)
[2023-01-26] MEDS: Buprenorp/Nalox 4-1 MG FILM SL SCH ×2 (07:44→23:06)
[2023-01-26] MEDS: Vancomycin 1,250 MG in NS 0.9% 250 ml 250 ML IVPB SCH ×3 (07:45→21:47)
[2023-01-26] MEDS: Nicotine PATCH 21 MG/24 HR PATCH TRANSDERM SCH (07:54)
[2023-01-26 10:55] LABS: ABS Basophils 0.1 10^3/uL (0.0-0.1); ABS Eosinophils 0.1 10^3/uL (0.0-0.5); ABS Lymphocytes 1.7 10^3/uL (1.0-4.8); ABS Monocytes 0.6 10^3/uL (0.0-0.9); ABS Neutrophils 10.8 10^3/uL (1.5-7.6); Eosinophil % 0.4 %; Hematocrit 32.8 % (35-45); Hemoglobin 11.1 g/dL (11.5-14.3); Lymphocyte % 12.7 %; Mean Corpuscular Hemoglobin 32.4 pg (27-33); Mean Corpuscular Hgb Conc 33.8 g/dL (31-36); Mean Corpuscular Volume 95.8 fL (80-97); Mean Platelet Volume 6.9 fL (7.5-11.2); Platelet Count 562 10^3/uL (150-450); Red Blood Count 3.42 10^6/uL (3.63-4.92); Red Cell Distribution Width 12.5 % (12-17); White Blood Count 13.2 10^3/uL (3.8-11.8)
[2023-01-26 11:17] LABS: Calcium 8.5 mg/dL (8.6-10.3); Creatinine, Serum 0.63 mg/dL (0.51-0.95); Magnesium 1.9 mg/dL (1.9-2.7); Potassium 3.5 mmol/L (3.5-5.0); eGFR CKD-EPI 116.4 (>60)
[2023-01-26] MEDS: Acetaminophen IV 1 GM/100ML 1,000 MG/100 ML BAG IV PRN (12:03)
[2023-01-27] MEDS: Acetaminophen IV 1 GM/100ML 1,000 MG/100 ML BAG IV PRN ×2 (02:02→13:28)
[2023-01-27 05:21] LABS: ABS Basophils 0.1 10^3/uL (0.0-0.1); ABS Eosinophils 0.2 10^3/uL (0.0-0.5); ABS Lymphocytes 2.3 10^3/uL (1.0-4.8); ABS Monocytes 0.5 10^3/uL (0.0-0.9); ABS Neutrophils 6.2 10^3/uL (1.5-7.6); ABS Nucleated RBC 0.01 10^3/ul; Eosinophil % 2.1 %; Hematocrit 33.3 % (35-45); Hemoglobin 11.6 g/dL (11.5-14.3); Lymphocyte % 24.7 %; Mean Corpuscular Hemoglobin 33.5 pg (27-33); Mean Corpuscular Hgb Conc 34.8 g/dL (31-36); Mean Corpuscular Volume 96.2 fL (80-97); Mean Platelet Volume 6.8 fL (7.5-11.2); Nucleated Red Blood Cells % 0.1 /100 WBC (0.0-0.4); Platelet Count 551 10^3/uL (150-450); Red Blood Count 3.47 10^6/uL (3.63-4.92); White Blood Count 9.3 10^3/uL (3.8-11.8)
[2023-01-27 05:36] LABS: Vancomycin Trough 18.4 mcg/mL
[2023-01-27 05:38] LABS: Calcium 8.5 mg/dL (8.6-10.3); Creatinine, Serum 0.71 mg/dL (0.51-0.95); Magnesium 1.7 mg/dL (1.9-2.7); Potassium 3.7 mmol/L (3.5-5.0); eGFR CKD-EPI 111.5 (>60)
[2023-01-27] MEDS: Vancomycin 1,250 MG in NS 0.9% 250 ml 250 ML IVPB SCH (05:51)
[2023-01-27] MEDS ORDERED: Vancomycin Trough Check NOTE FOLLOW UP ONE (06:30)
[2023-01-27] MEDS: Nicotine GUM 4MG FRUIT FLAVOR PO PRN ×3 (07:33→22:02)
[2023-01-27] MEDS: Nicotine PATCH 21 MG/24 HR PATCH TRANSDERM SCH (07:33)
[2023-01-27] MEDS: Buprenorp/Nalox 4-1 MG FILM SL SCH (10:11)
[2023-01-27] MEDS ORDERED: Magnesium Sulfate IV 3 GM in NS 0.9% 100 ml BAG 100 ML IVPB ONE (16:58)
[2023-01-27] MEDS: Enoxaparin 40 MG/0.4 ML SYR SUBCUT SCH (17:45)
[2023-01-27] MEDS: Vancomycin 1000 MG in NS 0.9% 250 ML IVPB SCH (17:45)
[2023-01-28] MEDS: Buprenorp/Nalox 4-1 MG FILM SL SCH ×3 (00:29→22:49)
[2023-01-28] MEDS: Vancomycin 1000 MG in NS 0.9% 250 ML IVPB SCH ×3 (02:09→18:10)
[2023-01-28] MEDS: Nicotine GUM 4MG FRUIT FLAVOR PO PRN ×2 (09:22→22:58)
[2023-01-28] MEDS: Nicotine PATCH 21 MG/24 HR PATCH TRANSDERM SCH (11:11)
[2023-01-28 11:41] LABS: ABS Basophils 0.1 10^3/uL (0.0-0.1); ABS Eosinophils 0.2 10^3/uL (0.0-0.5); ABS Lymphocytes 1.8 10^3/uL (1.0-4.8); ABS Monocytes 0.6 10^3/uL (0.0-0.9); ABS Neutrophils 5.8 10^3/uL (1.5-7.6); Eosinophil % 2.7 %; Hemoglobin 11.3 g/dL (11.5-14.3); Lymphocyte % 21.3 %; Mean Corpuscular Hgb Conc 34.4 g/dL (31-36); Mean Corpuscular Volume 96.1 fL (80-97); Mean Platelet Volume 6.9 fL (7.5-11.2); Platelet Count 606 10^3/uL (150-450); Red Blood Count 3.43 10^6/uL (3.63-4.92); Red Cell Distribution Width 12.7 % (12-17); White Blood Count 8.5 10^3/uL (3.8-11.8)
[2023-01-28 11:43] LABS: Calcium 8.6 mg/dL (8.6-10.3); Magnesium 2.1 mg/dL (1.9-2.7); Potassium 4.1 mmol/L (3.5-5.0)
[2023-01-28 11:48] LABS: Creatinine, Serum 0.67 mg/dL (0.51-0.95); eGFR CKD-EPI 114.7 (>60)
[2023-01-28] MEDS: Enoxaparin 40 MG/0.4 ML SYR SUBCUT SCH (15:24)
[2023-01-28] MEDS: Acetaminophen IV 1 GM/100ML 1,000 MG/100 ML BAG IV PRN ×2 (16:46→23:54)
[2023-01-29] MEDS: Vancomycin 1000 MG in NS 0.9% 250 ML IVPB SCH ×3 (00:37→17:29)
[2023-01-29 06:11] LABS: ABS Basophils 0.1 10^3/uL (0.0-0.1); ABS Eosinophils 0.3 10^3/uL (0.0-0.5); ABS Lymphocytes 1.8 10^3/uL (1.0-4.8); ABS Monocytes 0.4 10^3/uL (0.0-0.9); ABS Neutrophils 5.6 10^3/uL (1.5-7.6); Eosinophil % 3.1 %; Hematocrit 34.3 % (35-45); Hemoglobin 11.7 g/dL (11.5-14.3); Lymphocyte % 22.1 %; Mean Corpuscular Hemoglobin 32.8 pg (27-33); Mean Corpuscular Volume 96.3 fL (80-97); Platelet Count 602 10^3/uL (150-450); Red Blood Count 3.57 10^6/uL (3.63-4.92); Red Cell Distribution Width 12.6 % (12-17); White Blood Count 8.1 10^3/uL (3.8-11.8)
[2023-01-29 06:40] LABS: Creatinine, Serum 0.59 mg/dL (0.51-0.95); Magnesium 2.2 mg/dL (1.9-2.7); eGFR CKD-EPI 118.2 (>60)
[2023-01-29] MEDS: Nicotine GUM 4MG FRUIT FLAVOR PO PRN (08:12)
[2023-01-29] MEDS: Nicotine PATCH 21 MG/24 HR PATCH TRANSDERM SCH (10:52)
[2023-01-29] MEDS: Buprenorp/Nalox 4-1 MG FILM SL SCH (10:52)
[2023-01-29] MEDS: Acetaminophen IV 1 GM/100ML 1,000 MG/100 ML BAG IV PRN (12:41)
[2023-01-29 13:59] VITALS: BP 103/66
[2023-01-29] MEDS: Enoxaparin 40 MG/0.4 ML SYR SUBCUT SCH (16:54)
[2023-01-29] MEDS ORDERED: Amoxicillin/Clavul 875/125 TAB (Augmentin 875 tab) PO ONE (16:58)
[2023-01-30] MEDS ORDERED: Vancomycin Trough Check NOTE FOLLOW UP ONE (09:30)
== END 2023-01-29 17:45 | disposition home or self-care (01) | DRG 383 ==
LOC: ED 18:38 → EDHOLD 01-22 02:12 → INTOOBSV 01-22 02:12 → SUATTDRO 01-22 02:12 → EDHOLD 01-22 10:57 → MEDTELE 01-22 13:29 → SUATTDRO 01-25 11:22 → MED 01-26 12:43
PROVIDERS: ADMIT Internal Medicine; ATTEND Internal Medicine